=== PATIENT | male | born 1965 | race Caucasian/White ===

== ENCOUNTER 2025-09-04 17:21 | Emergency (ER) | payer MEDICARE ==
--- NOTE | 2025-09-04 18:27 | ERPHSYRPT ---
- History of Present Illness Time Seen by Provider: 09/04/25 18:26 Source: patient, family Exam Limitations: no limitations Patient Subjective Stated Complaint: patient concerned his big tow is extremely swollen Triage Nursing Assessment: patient walked into waiting room with his cane says he noticed his large toe is extremely swollen , it does have open sore with black tissue around edges sore to bottom of big toe on right foot. patient is alert nad orietnedx4, able to ambualte by self with cane, no other areas of concern noted. Physician History: This is an obese, diabetic 60-year-old white male patient who arrives by private vehicle and receives his medical care in [place] with the complaint of 2 days of swollen right toe and right foot. Patient does not have much sensation in his feet as he is diabetic. Patient has been on amoxicillin recently for post dental procedure. Patient recently moved to this region. Patient did not notice until it was pointed out today in the emergency room that there is a dark spot on the plantar surface of his right great toe. He states there is been no odor. He states has been no drainage from the site. He has never had a thing like this before. Patient has a history of diabetes which he states is under control. Patient states his hemoglobin A1c was recently 4.6. Patient has a history of hypertension and sleep apnea. He has not noticed any fevers. Method of Injury: unknown Occurred: days ago (Noticed 2 days ago) Severity of Pain-Max: none Severity of Pain-Current: none Lower Extremities Pain: other: right (Right foot and right toe swelling without much discomfort) Modifying Factors: Improves With: nothing Associated Symptoms: none Allergies/Adverse Reactions: No Known Drug Allergies Allergy (Verified 09/04/25 18:09) Hx Tetanus, Diphtheria Vaccination/Date Given: Yes Hx Influenza Vaccination/Date Given: No Hx Pneumococcal Vaccination/Date Given: No Immunizations Up to Date: Yes Travel Risk - International Travel Have you traveled outside of the country in past 3 weeks: No - Emerging Infectious Disease Are you exhibiting symptoms associated with any current EIDs: No - Review of Systems Constitutional: No Symptoms Eyes: No Symptoms Ears, Nose, & Throat: No Symptoms Respiratory: No Symptoms Cardiac: No Symptoms Abdominal/Gastrointestinal: No Symptoms Genitourinary Symptoms: No Symptoms Musculoskeletal: No Symptoms Skin: Other (Swelling right foot and right toe.) Neurological: No Symptoms Psychological: No Symptoms Endocrine: No Symptoms Hematologic/Lymphatic: No Symptoms Immunological/Allergic: No Symptoms All Other Systems: Reviewed and Negative - Past Medical History Pertinent Past Medical History: Yes Cardiac History: Hypertension Respiratory History: Sleep Apnea Endocrine Medical History: Diabetes Type II - Past Surgical History Past Surgical History: Yes Musculoskeletal: Orthopedic Surgery Other Surgical History: 3 hip replacements to right hip , rods in his back - Social History Smoking Status: Never smoker Exposure to second hand smoke: No - Social Determinants of Health Will the patient participate in the screening: Declined to provide - Nursing Vital Signs Nursing Vital Signs: Initial Vital Signs Pulse Rate 69 09/04/25 17:22 Respiratory Rate 18 09/04/25 17:22 Blood Pressure 171/89 09/04/25 17:22 O2 Sat by Pulse Oximetry 97 09/04/25 17:22 Pain Scale Pain Intensity 0 - Physical Exam General Appearance: no apparent distress, alert, anxiety, obese Eyes, Ears, Nose, Throat Exam: normal ENT inspection, moist mucous membranes Neck Exam: normal inspection, non-tender, supple, full range of motion Cardiovascular/Respiratory Exam: chest non-tender, no respiratory distress Gastrointestinal/Abdominal Exam: non-tender Back Exam: normal inspection, normal range of motion, No CVA tenderness, No vertebral tenderness Hips Exam: bilateral: non-tender, normal inspection, normal range of motion, no evidence of injury Legs Exam: bilateral leg: non-tender, normal inspection, normal range of motion, no evidence of injury Knees Exam: bilateral knee: non-tender, normal inspection, normal range of motion, no evidence of injury Ankle Exam: bilateral ankle: non-tender, normal inspection, normal range of motion, no evidence of injury Foot Exam: right foot: soft tissue tenderness (Right foot and right toe), swelling (Right foot and right toe), other (Strong palpable pedal pulses. Plantar surface first toe right foot with black eschar but no ulceration. No odor. No drainage. No proximal streaking of redness), left foot: normal inspection, no evidence of injury, bilateral foot: non-tender, normal range of motion Neuro/Tendon Exam: normal motor functions, normal tendon functions Mental Status Exam: alert, oriented x 3, cooperative Skin Exam: normal color, warm, dry SpO2 Interpretation: normal SpO2: 97 O2 Delivery: Room Air - Course Nursing assessment & vital signs reviewed: Yes Ordered Tests: Active Orders 24 hr Category Date Time Status FOOT (MINIMUM 3 VIEWS) Stat Exams 09/04/25 19:11 Taken BLOOD CULTURE Stat Lab 09/04/25 19:25 Received BMP Stat Lab 09/04/25 19:20 Completed CBC W DIFF Stat Lab 09/04/25 19:20 Completed Lactic Acid Stat Lab 09/04/25 19:34 Completed PROCALCITONIN Stat Lab 09/04/25 19:20 Completed Uric Acid Stat Lab 09/04/25 19:20 Completed Medication Summary Discontinued Medications Generic Name Dose Route Start Last Admin Trade Name Carmita PRN Reason Stop Dose Admin Fentanyl Citrate Confirm 09/04/25 19:30 Fentanyl Citrate 100 Mcg/2 Ml* Vial Administered 09/04/25 19:31 Dose 100 mcg .ROUTE .Catacel-MED ONE Lab/Rad Data: Laboratory Result Diagrams 09/04/25 19:20 09/04/25 19:20 Laboratory Results 09/04/25 09/04/25 09/04/25 Range/Units 19:34 19:20 19:20 WBC (4.23-9.07) x10^3/uL RBC (4.63-6.08) x10^6/uL Hgb (13.7-17.5) g/dL Hct (40.1-51.0) % MCV (79.0-92.2) fL MCH (25.7-32.2) pg MCHC (32.3-36.5) g/dL RDW (11.6-14.4) % Plt Count (163-337) x10^3/uL MPV (9.4-12.4) fL Gran % (34.0-67.9) % Immature Gran % (Auto) (0.001-0.429) % Nucleat RBC Rel Count (0.00-0.2) % Eos # (Auto) (0.04-0.54) x10^3/uL Immature Gran # (Auto) (0.001-0.031) x10^3u/L Absolute Lymphs (auto) (1.32-3.57) x10^3/uL Absolute Monos (auto) (0.30-0.82) x10^3/uL Absolute Nucleated RBC (0.00-0.012) x10^3u/L Lymphocytes % (21.8-53.1) % Monocytes % (5.3-12.2) % Eosinophils % (0.8-7.0) % Basophils % (0.2-1.2) % Absolute Granulocytes (1.78-5.38) x10^3/uL Basophils # (0.01-0.08) x10^3/uL Sodium (135-145) mmol/L Potassium (3.5-5.1) mmol/L Chloride (98-107) mmol/L Carbon Dioxide (22-30) mmol/L Anion Gap (5-15) MEQ/L BUN (9-20) mg/dL Creatinine (0.66-1.25) mg/dL Estimated GFR ML/MIN Glucose (74-106) mg/dL Lactic Acid 0.8 (0.4-2.0) Uric Acid 3.7 (3.5-7.2) mg/dL Calcium (8.4-10.2) mg/dL Procalcitonin 0.067 (0.030-0.080) ng/mL 09/04/25 09/04/25 Range/Units 19:20 19:20 WBC 8.2 (4.23-9.07) x10^3/uL RBC 4.12 L (4.63-6.08) x10^6/uL Hgb 12.5 L (13.7-17.5) g/dL Hct 37.5 L (40.1-51.0) % MCV 91.0 (79.0-92.2) fL MCH 30.3 (25.7-32.2) pg MCHC 33.3 (32.3-36.5) g/dL RDW 15.9 H (11.6-14.4) % Plt Count 206 (163-337) x10^3/uL MPV 10.1 (9.4-12.4) fL Gran % 50.1 (34.0-67.9) % Immature Gran % (Auto) 0.1 (0.001-0.429) % Nucleat RBC Rel Count 0.0 (0.00-0.2) % Eos # (Auto) 0.16 (0.04-0.54) x10^3/uL Immature Gran # (Auto) 0.01 (0.001-0.031) x10^3u/L Absolute Lymphs (auto) 3.25 (1.32-3.57) x10^3/uL Absolute Monos (auto) 0.67 (0.30-0.82) x10^3/uL Absolute Nucleated RBC 0.00 (0.00-0.012) x10^3u/L Lymphocytes % 39.4 (21.8-53.1) % Monocytes % 8.1 (5.3-12.2) % Eosinophils % 1.9 (0.8-7.0) % Basophils % 0.4 (0.2-1.2) % Absolute Granulocytes 4.12 (1.78-5.38) x10^3/uL Basophils # 0.03 (0.01-0.08) x10^3/uL Sodium 139 (135-145) mmol/L Potassium 4.1 (3.5-5.1) mmol/L Chloride 109 H (98-107) mmol/L Carbon Dioxide 22 (22-30) mmol/L Anion Gap 12.9 (5-15) MEQ/L BUN 27 H (9-20) mg/dL Creatinine 1.02 (0.66-1.25) mg/dL Estimated GFR 84.7 ML/MIN Glucose 106 (74-106) mg/dL Lactic Acid (0.4-2.0) Uric Acid (3.5-7.2) mg/dL Calcium 9.6 (8.4-10.2) mg/dL Procalcitonin (0.030-0.080) ng/mL - Progress Progress: unchanged Progress Note: 09/04/25 19:54 My medical decision making and the assignment of moderate complexity of this patient's medical issue today is based on review of the patient's past medical history, reviewed patient's medication list, reviewed patient drug allergy list, history present illness and physical findings on examination. The workup in this patient includes CBC, BMP, procalcitonin level, lactic acid level, x-ray right foot. Differential diagnosis includes was not limited to cellulitis, diabetic foot ulcer/infection, osteomyelitis 09/04/25 20:35 I interpreted the patient's laboratory data results. Based on the laboratory data results, there are no acute, emergent medical issues. Specifically, the anion gap is normal. The procalcitonin level is normal, the lactic acid level is normal. The uric acid level is also normal. I interpreted the preliminary report of the patient's right foot x-ray. I see no acute fracture or dislocation. Counseled pt/family regarding: lab results, diagnosis, need for follow-up, rad results Medical Desision Making - Diagnostic Testing Diagnostic test were ordered, analyzed, and reviewed by me: Yes Radiological Interpretation: Interpreted by me - Risk of complications Low Risk: Low risk of morbidity from additional dx testing or treatment The pt has a mod risk of morbidity or mortality based on: Need for prescription drug management - Departure Departure Disposition: Home Clinical Impression: Cellulitis of toe of right foot Condition: Stable Critical Care Time: No Referrals: DOCTOR,NO FAMILY [Primary Care Provider, UNKNOWN] - Follow up/PCP as directed Additional Instructions: Take your antibiotics and other medication as prescribed. Call your primary care provider and/or foreign exchange clerk on 09/07/2025, to make arrangements for follow-up appointment for further evaluation management. Prescriptions: Smz/Tmp Ds Tablet [Bactrim Ds Tablet] 1 udtab PO BID #[id number] tablet
[2025-09-04] MEDS ORDERED: SUBLIMAZE 100 MCG/2 ML ONE (19:30)
[2025-09-04 19:36] LABS: BASOPHIL % 0.4 % (0.2-1.2); Basophil (Absolute #) 0.03 x10^3/uL (0.01-0.08); Eosinophil (Absolute #) 0.16 x10^3/uL (0.04-0.54); Hematocrit 37.5 % (40.1-51.0); Hemoglobin 12.5 g/dL (13.7-17.5); IMMATURE GRAN # 0.01 x10^3u/L (0.001-0.031); IMMATURE GRAN % 0.1 % (0.001-0.429); Lymphocyte (Absolute #) 3.25 x10^3/uL (1.32-3.57); Mean Corpuscular Hemoglobin 30.3 pg (25.7-32.2); Mean Corpuscular Hgb Concent. 33.3 g/dL (32.3-36.5); Monocyte (Absolute #) 0.67 x10^3/uL (0.30-0.82); NUCLEATED RBC # 0.00 x10^3u/L (0.00-0.012); NUCLEATED RBC % 0.0 % (0.00-0.2); Platelet Count 206 x10^3/uL (163-337); Red Blood Count 4.12 x10^6/uL (4.63-6.08); White Blood Count 8.2 x10^3/uL (4.23-9.07)
[2025-09-04 19:48] LABS: Calcium 9.6 mg/dL (8.4-10.2); Carbon Dioxide 22.0 mmol/L (22-30); Creatinine 1 1.02 mg/dL (0.66-1.25); EST GLOMERULAR FILTRATION RATE 84.7 ML/MIN; Glucose 106.0 mg/dL (74-106); Potassium 4.1 mmol/L (3.5-5.1)
[2025-09-04 19:53] VITALS: O2SAT 97
[2025-09-04 20:12] VITALS: PULSE 68; RESP 16
[2025-09-04 20:15] VITALS: BP 141/73
[2025-09-04] MEDS ORDERED: Rocephin 1000 MG INJ ONE (20:41)
[2025-09-04] MEDS ORDERED: BACTRIM DS TABLET PO ONE (20:41)
[2025-09-04] MEDS ORDERED: Sterile H2O 10 ml IJ ONE (20:41)
[2025-09-04] MEDS: Rocephin 1000 MG INJ IM ONE (20:44)
[2025-09-04] MEDS: BACTRIM DS TABLET PO ONE (20:45)
--- NOTE | 2025-09-05 08:05 | XRAY ---
Indication: 1st toe swelling/erythema. Comparison: None 3 nonweightbearing views right foot demonstrates osteopenia, tiny posterior/plantar heel spurs, and old distal tibial shaft fracture. No other bony, articular, or soft tissue abnormalities.
== END 2025-09-04 20:57 | disposition home or self-care (01) ==
LOC: ED 17:21
DX: L03.031 Cellulitis of right toe (principal); E11.9 Type 2 diabetes mellitus without complications; I10 Essential (primary) hypertension; Z79.899 Other long term (current) drug therapy